=== PATIENT | male | born 1940 | race Caucasian/White ===

== ENCOUNTER 2020-08-07 23:58 | Observation (INO) ==
[2020-08-08 00:55] LABS: INR 0.9; PT Patient Result 10.2 SECS (9.8-11.9)
[2020-08-08 01:02] LABS: Basophils # 0.1 10*3/uL (0.0-0.2); Basophils % 0.6 % (0.0-0.8); Eosinophils # 0.4 10*3/uL (0.0-0.87); Eosinophils % 3.1 % (0.00-10.9); Hematocrit 28.8 VOL% (42.0-52.0); Hemoglobin 9.3 GM/DL (14.0-18.0); Immature Granulocytes % 3.2 %; Lymphocytes # 2.2 10*3/uL (1.4-4.0); Lymphocytes % 17.6 % (21.2-54.2); Mean Corpuscular HGB Conc 32.3 GM/DL (32-36); Mean Platelet Volume 10.8 FL (9.6-12.0); Monocytes % 8.1 % (1.7-12.7); NRBC # 0.02 10*3/uL; Neutrophils % 67.4 % (38.7-73.9); Platelet Count 224 T/CUMM (130-400); Red Blood Count 2.91 MC/CUMM (3.8-5.5); Red Cell Distribution Width 16.2 % (9.3-17.3); White Blood Count 12.4 T/CUMM (4-12)
[2020-08-08 01:09] LABS: Albumin 2.8 G/DL (3.4-5.0); Bilirubin,Total 0.4 MG/DL (0.2-1.0); Calcium 7.6 MG/DL (8.5-10.1); Osmolality,Calculated 283.3 MOS/KG (273-304); Total Protein 5.8 G/DL (6.4-8.3)
[2020-08-08] MEDS ORDERED: ALBUTEROL 2.5 MG/3 ML NEB RESP TX PRN (03:15)
[2020-08-08] MEDS ORDERED: ALBUTEROL/IPRATROPIUM 3 ML NEB RESP TX PRN (03:20)
[2020-08-08] MEDS ORDERED: MORPHINE 4 MG/1 ML VIAL IV PRN (03:20)
[2020-08-08] MEDS ORDERED: DOCUSATE SODIUM 100 MG CAPSULE PO PRN (03:20)
[2020-08-08] MEDS ORDERED: ONDANSETRON 4 MG/2 ML VIAL IV PRN (03:20)
[2020-08-08] MEDS ORDERED: ACETAMINOPHEN 325 MG TABLET PO PRN (03:20)
[2020-08-08] MEDS ORDERED: INFLUENZA VIRUS VACCINE 0.5 ML SYRINGE IM ONE (04:47)
[2020-08-08 05:30] LABS: Total Protein 5.7 G/DL (6.4-8.3)
[2020-08-08] MEDS: IPRATROPIUM 500 MCG/2.5 ML NEB RESP TX SCH ×4 (07:49→19:27)
[2020-08-08] MEDS: ENOXAPARIN 40 MG/0.4 ML SYRINGE SUBCUT SCH (08:17)
[2020-08-08] MEDS: DICLOFENAC 1% GEL 100 GM TUBE TOP SCH ×4 (08:17→20:42)
[2020-08-08] MEDS: FUROSEMIDE 20 MG TABLET PO SCH (08:17)
[2020-08-08] MEDS: PANTOPRAZOLE 40 MG TABLET PO SCH (08:17)
[2020-08-08] MEDS: carvediloL 3.125 MG TABLET PO SCH ×2 (08:17→20:42)
[2020-08-08] MEDS: FLUTICASONE/SALMETEROL 250-50 DISKUS 14 DOSE INH SCH ×2 (08:17→20:39)
[2020-08-08] MEDS: SACUBITRIL/VALSARTAN 49-51 MG TABLET PO SCH ×2 (08:17→20:42)
[2020-08-08] MEDS: ASPIRIN EC 325 MG TABLET PO SCH (08:17)
[2020-08-08] MEDS: FOLIC ACID 1 MG TABLET PO SCH (08:17)
[2020-08-08] MEDS: MONTELUKAST 10 MG TABLET PO SCH (08:17)
[2020-08-08 09:44] LABS: Bilirubin,Urine Negative (Negative); Blood, Urine Negative (Negative); Glucose,Urine (UA) Negative (Negative); Ketones,Urine Negative (Negative); Mucus,Urine Occasional /LPF (Occasional); Nitrite,Urine Negative (Negative); Protein,Urine 30 MG/DL; RBC,Urine <1 /HPF (0-4); Urine Appearance CLEAR (Clear); Urine Color Yellow (Yellow); Urine Specific Gravity 1.021 (1.001-1.035); Urine Urobilinogen < 2.0 EU/DL (0.2-1.0); WBC,Urine 1 /HPF (0-6)
[2020-08-08 10:17] LABS: Troponin I 0.089 NG/ML (0.00-0.045)
[2020-08-08] MEDS ORDERED: GABAPENTIN 300 MG CAPSULE PO SCH (21:00)
[2020-08-08] MEDS ORDERED: ATORVASTATIN 10 MG TABLET PO SCH (21:00)
[2020-08-09 06:02] LABS: Basophils # 0.2 10*3/uL (0.0-0.2); Basophils % 1.3 % (0.0-0.8); Eosinophils # 0.5 10*3/uL (0.0-0.87); Eosinophils % 3.1 % (0.00-10.9); Hematocrit 40.6 VOL% (42.0-52.0); Immature Granulocytes % 3.8 %; Immature Granulocytes Absolute 0.56 #; Lymphocytes % 20.1 % (21.2-54.2); Mean Corpuscular Volume 97.1 FL (87-102); Mean Platelet Volume 10.6 FL (9.6-12.0); Monocytes % 8.1 % (1.7-12.7); Neutrophils % 63.6 % (38.7-73.9); Red Cell Distribution Width 15.9 % (9.3-17.3); White Blood Count 14.7 T/CUMM (4-12)
[2020-08-09 06:05] LABS: Hemoglobin 13.4 GM/DL (14.0-18.0); Platelet Count 293 T/CUMM (130-400); Red Blood Count 4.18 MC/CUMM (3.8-5.5)
[2020-08-09 06:06] LABS: Albumin 3.2 G/DL (3.4-5.0); Bilirubin,Total 1.7 MG/DL (0.2-1.0); Calcium 9.5 MG/DL (8.5-10.1); Osmolality,Calculated 280.4 MOS/KG (273-304); Total Protein 6.5 G/DL (6.4-8.3)
[2020-08-09 06:18] LABS: Eosinophils 5 % (0-10); Hypochromasia 1+; Lymphocytes 20 % (20-55); Microcytosis 1+; Platelet Estimate Adequate; Segmented Neutrophils 66 % (50-85); Total Cells Counted 100
[2020-08-09] MEDS: IPRATROPIUM 500 MCG/2.5 ML NEB RESP TX SCH ×3 (07:32→14:10)
[2020-08-09] MEDS: ENOXAPARIN 40 MG/0.4 ML SYRINGE SUBCUT SCH (08:49)
[2020-08-09] MEDS: ASPIRIN EC 325 MG TABLET PO SCH (08:49)
[2020-08-09] MEDS: SACUBITRIL/VALSARTAN 49-51 MG TABLET PO SCH (08:50)
[2020-08-09] MEDS: PANTOPRAZOLE 40 MG TABLET PO SCH (08:50)
[2020-08-09] MEDS: MONTELUKAST 10 MG TABLET PO SCH (08:50)
[2020-08-09] MEDS: carvediloL 3.125 MG TABLET PO SCH (08:50)
[2020-08-09] MEDS: FUROSEMIDE 20 MG TABLET PO SCH (08:50)
[2020-08-09] MEDS: FOLIC ACID 1 MG TABLET PO SCH (08:50)
[2020-08-09] MEDS: DICLOFENAC 1% GEL 100 GM TUBE TOP SCH ×2 (09:00→14:09)
[2020-08-09] MEDS: FLUTICASONE/SALMETEROL 250-50 DISKUS 14 DOSE INH SCH (09:01)
[2020-08-09] MEDS ORDERED: DIAZEPAM 5 MG TABLET PO ONE (09:05)
[2020-08-09 10:36] LABS: Total Protein (Chem) 5.7 G/DL (6.4-8.3)
[2020-08-09 10:41] LABS: Albumin (SPE) 3.7 G/DL (3.2-5.3); Albumin (SPE) Rel % 64.4 %; Alpha 1 (SPE) 0.1 G/DL (0.1-0.4); Alpha 1 (SPE) Rel % 2.2 %; Alpha 2 (SPE) 0.8 G/DL (0.4-1.0); Alpha 2 (SPE) Rel % 13.7 %; Beta (SPE) 0.6 G/DL (0.5-1.1); Beta (SPE) Rel % 11.2 %; Gamma (SPE) 0.5 G/DL (0.7-1.7); Gamma (SPE) Rel % 8.5 %
[2020-08-09 11:45] VITALS: BP 111/63
[2020-08-09 11:57] LABS: Total Volume,Urine 2600 ML (400-2000)
[2020-08-09 12:11] LABS: Total Protein 24 Hr Ur Result 754 MG/24HR (0-149.1)
[2020-08-10 07:54] LABS: 24 Hr Protein (Bench) 754 MG/24HR (0-149.1)
[2020-08-10 09:29] LABS: Albumin (UPE) Rel % 13.4 %; Alpha 1 (UPE) 57.3 MG/24H; Alpha 1 (UPE) Rel % 7.6 %; Alpha 2 (UPE) 33.9 MG/24H; Alpha 2 (UPE) Rel % 4.5 %; Beta (UPE) Rel % 61.1 %; Gamma (UPE) Rel % 13.4 %
[2020-08-10 09:30] LABS: Beta (UPE) 460.6 MG/24H
[2020-08-10 13:16] LABS: Immunoglobulin A (Chem) 146 MG/DL (70-400); Immunoglobulin G (Chem) 595 MG/DL (700-1600); Immunoglobulin M (Chem) 32 MG/DL (40-230)
== END 2020-08-09 15:26 | disposition home or self-care (01) ==
LOC: EDBD → EDUNIT# → N.EDINP 23:58 → N.ED 23:58 → SUATTDRO 08-08 03:12 → N.EDINP 08-08 04:30 → N.5E 08-08 04:38
PROVIDERS: ADMIT Internal Medicine; ATTEND Internal Medicine Geriatric Medicine

== ENCOUNTER 2020-10-06 00:07 | Inpatient (IN) ==
[2020-10-06 01:08] LABS: Basophils # 0.1 10*3/uL (0.0-0.2); Basophils % 0.5 % (0.0-0.8); Eosinophils # 0.1 10*3/uL (0.0-0.87); Eosinophils % 0.3 % (0.00-10.9); Hematocrit 36.4 VOL% (42.0-52.0); Hemoglobin 11.2 GM/DL (14.0-18.0); Immature Granulocytes % 2.6 %; Immature Granulocytes Absolute 0.52 #; Lymphocytes # 0.9 10*3/uL (1.4-4.0); Lymphocytes % 4.6 % (21.2-54.2); Mean Corpuscular HGB Conc 30.8 GM/DL (32-36); Mean Corpuscular Volume 101.7 FL (87-102); Mean Platelet Volume 10.8 FL (9.6-12.0); Monocytes % 2.9 % (1.7-12.7); Neutrophils % 89.1 % (38.7-73.9); Platelet Count 226 T/CUMM (130-400); Red Blood Count 3.58 MC/CUMM (3.8-5.5); Red Cell Distribution Width 16.2 % (9.3-17.3); White Blood Count 19.8 T/CUMM (4-12)
[2020-10-06 01:13] LABS: Albumin 2.5 G/DL (3.4-5.0); Bilirubin,Total 1.5 MG/DL (0.2-1.0); Calcium 8.5 MG/DL (8.5-10.1); Osmolality,Calculated 275.7 MOS/KG (273-304); Total Protein 6.1 G/DL (6.4-8.3)
[2020-10-06 02:11] LABS: Bilirubin,Urine Negative (Negative); Blood, Urine Negative (Negative); Glucose,Urine (UA) Negative (Negative); Ketones,Urine Negative (Negative); Mucus,Urine Occasional /LPF (Occasional); Nitrite,Urine Negative (Negative); Protein,Urine 30 MG/DL; RBC,Urine 1 /HPF (0-4); Urine Appearance CLEAR (Clear); Urine Color Yellow (Yellow); Urine Specific Gravity 1.035 (1.001-1.035); WBC,Urine 1 /HPF (0-6)
[2020-10-06] MEDS ORDERED: PIPERACILLIN/TAZOBACTAM 3,375 MG in SODIUM CHLORIDE 0.9% 100 ML IV STA (02:15)
[2020-10-06] MEDS ORDERED: SODIUM CHLORIDE 0.9% 100 ML IV ONE (02:18)
[2020-10-06] MEDS ORDERED: PIPERACILLIN/TAZOBACTAM 3,375 MG VIAL IV ONE (02:18)
[2020-10-06] MEDS ORDERED: ONDANSETRON 4 MG/2 ML VIAL IV PRN (03:35)
[2020-10-06] MEDS ORDERED: ACETAMINOPHEN 325 MG TABLET PO PRN (03:35)
[2020-10-06 03:40] LABS: Anisocytosis 2+; Band Neutrophils 5 % (0-10); Hypochromasia Slight; Lymphocytes 6 % (20-55); Macrocytosis 2+; Metamyelocytes 3 %; Ovalocytes 1+; Platelet Estimate Normal; Segmented Neutrophils 82 % (50-85); Total Cells Counted 100
[2020-10-06] MEDS ORDERED: SODIUM CHLORIDE 0.9% 1,000 ML IV SCH (04:00)
[2020-10-06] MEDS ORDERED: CLINDAMYCIN INJ 900 MG in PREMIX 1 EACH IV ONE (07:00)
[2020-10-06 08:07] LABS: Basophils # 0.1 10*3/uL (0.0-0.2); Basophils % 0.3 % (0.0-0.8); Eosinophils % 0.2 % (0.00-10.9); Hemoglobin 10.7 GM/DL (14.0-18.0); Immature Granulocytes % 2.1 %; Immature Granulocytes Absolute 0.53 #; Lymphocytes # 1.4 10*3/uL (1.4-4.0); Lymphocytes % 5.6 % (21.2-54.2); Mean Corpuscular HGB Conc 33.4 GM/DL (32-36); Mean Corpuscular Volume 95.2 FL (87-102); Mean Platelet Volume 10.7 FL (9.6-12.0); Monocytes % 4.5 % (1.7-12.7); Neutrophils % 87.3 % (38.7-73.9); Platelet Count 255 T/CUMM (130-400); Red Blood Count 3.36 MC/CUMM (3.8-5.5); Red Cell Distribution Width 16.1 % (9.3-17.3); White Blood Count 24.9 T/CUMM (4-12)
[2020-10-06] MEDS: PANTOPRAZOLE 40 MG VIAL IV SCH (08:17)
[2020-10-06 08:34] LABS: Albumin 2.3 G/DL (3.4-5.0); Bilirubin,Total 2.3 MG/DL (0.2-1.0); Calcium 8.5 MG/DL (8.5-10.1); Osmolality,Calculated 277.4 MOS/KG (273-304); Total Protein 5.9 G/DL (6.4-8.3)
[2020-10-06 08:47] LABS: Atypical Lymphocytes Few; Band Neutrophils 2 % (0-10); Lymphocytes 10 % (20-55); Platelet Estimate Normal; Polychromasia Slight; Segmented Neutrophils 78 % (50-85); Total Cells Counted 100
[2020-10-06] MEDS ORDERED: ALBUTEROL 2.5 MG/3 ML NEB RESP TX PRN (09:23)
[2020-10-06] MEDS ORDERED: ETOMIDATE 40 MG/20 ML VIAL IV ONE (09:51)
[2020-10-06] MEDS ORDERED: ROCURONIUM 50 MG/5 ML VIAL IV ONE (09:51)
[2020-10-06] MEDS ORDERED: LIDOCAINE 2% 5 ML VIAL ONE (09:51)
[2020-10-06] MEDS ORDERED: ONDANSETRON 4 MG/2 ML VIAL ONE (09:51)
[2020-10-06] MEDS ORDERED: fentaNYL 100 MCG/2 ML VIAL ONE ×2 (09:51→12:06)
[2020-10-06] MEDS ORDERED: FUROSEMIDE 20 MG/2 ML VIAL IV ONE (10:00)
[2020-10-06] MEDS ORDERED: TISSUE ADHESIVE 1 EACH APPLICATOR TOP ONE (11:22)
[2020-10-06 12:26] LABS: Amorphous Crystals,Urine Few /HPF (Few); Bacteria,Urine Occasional /HPF (Few); Bilirubin,Urine Negative (Negative); Blood, Urine Negative (Negative); Glucose,Urine (UA) Negative (Negative); Ketones,Urine Negative (Negative); Nitrite,Urine Negative (Negative); Protein,Urine Negative; RBC,Urine 2 /HPF (0-4); Urine Appearance CLEAR (Clear); Urine Color Straw (Yellow); Urine Specific Gravity 1.015 (1.001-1.035); Urine Urobilinogen < 2.0 EU/DL (0.2-1.0); WBC,Urine 3 /HPF (0-6)
[2020-10-06] MEDS: PIPERACILLIN/TAZOBACTAM 3,375 MG in SODIUM CHLORIDE 0.9% 100 ML IV SCH ×2 (15:29→18:15)
[2020-10-06] MEDS: GABAPENTIN 300 MG CAPSULE PO SCH (22:04)
[2020-10-06] MEDS: carvediloL 3.125 MG TABLET PO SCH (22:04)
[2020-10-06] MEDS: ATORVASTATIN 10 MG TABLET PO SCH (22:05)
[2020-10-06] MEDS: SACUBITRIL/VALSARTAN 49-51 MG TABLET PO SCH (22:08)
[2020-10-06] MEDS: ACYCLOVIR 200 MG CAPSULE PO SCH (22:08)
[2020-10-07] MEDS: PIPERACILLIN/TAZOBACTAM 3,375 MG in SODIUM CHLORIDE 0.9% 100 ML IV SCH ×3 (03:57→17:44)
[2020-10-07 05:49] LABS: Basophils % 0.2 % (0.0-0.8); Eosinophils # 0.3 10*3/uL (0.0-0.87); Eosinophils % 1.9 % (0.00-10.9); Hematocrit 31.3 VOL% (42.0-52.0); Hemoglobin 10.4 GM/DL (14.0-18.0); Immature Granulocytes % 2.9 %; Mean Corpuscular HGB Conc 33.2 GM/DL (32-36); Mean Corpuscular Volume 96.6 FL (87-102); Mean Platelet Volume 10.2 FL (9.6-12.0); Monocytes % 6.6 % (1.7-12.7); Neutrophils % 82.4 % (38.7-73.9); Platelet Count 283 T/CUMM (130-400); Red Blood Count 3.24 MC/CUMM (3.8-5.5); Red Cell Distribution Width 16.4 % (9.3-17.3)
[2020-10-07 06:24] LABS: Bilirubin,Total 1.5 MG/DL (0.2-1.0); Calcium 8.2 MG/DL (8.5-10.1); Osmolality,Calculated 277.5 MOS/KG (273-304); Total Protein 5.6 G/DL (6.4-8.3)
[2020-10-07] MEDS ORDERED: FUROSEMIDE 20 MG TABLET PO SCH (09:00)
[2020-10-07] MEDS ORDERED: DEXAMETHASONE 4 MG TABLET PO SCH (09:00)
[2020-10-07] MEDS: ACYCLOVIR 200 MG CAPSULE PO SCH ×2 (09:13→21:38)
[2020-10-07] MEDS: SACUBITRIL/VALSARTAN 49-51 MG TABLET PO SCH ×2 (09:13→22:18)
[2020-10-07] MEDS: MONTELUKAST 10 MG TABLET PO SCH (09:13)
[2020-10-07] MEDS: FOLIC ACID 1 MG TABLET PO SCH (09:14)
[2020-10-07] MEDS: carvediloL 3.125 MG TABLET PO SCH ×2 (09:14→21:36)
[2020-10-07] MEDS: SPIRONOLACTONE 25 MG TABLET PO SCH (09:14)
[2020-10-07] MEDS: PANTOPRAZOLE 40 MG TABLET PO SCH (09:15)
[2020-10-07] MEDS: IPRATROPIUM 500 MCG/2.5 ML NEB RESP TX SCH ×3 (11:05→19:29)
[2020-10-07] MEDS: PANTOPRAZOLE 40 MG VIAL IV SCH (13:23)
[2020-10-07] MEDS: ATORVASTATIN 10 MG TABLET PO SCH (21:36)
[2020-10-07] MEDS: GABAPENTIN 300 MG CAPSULE PO SCH (21:37)
[2020-10-08] MEDS: PIPERACILLIN/TAZOBACTAM 3,375 MG in SODIUM CHLORIDE 0.9% 100 ML IV SCH (02:25)
[2020-10-08 05:43] LABS: Basophils # 0.1 10*3/uL (0.0-0.2); Basophils % 0.4 % (0.0-0.8); Eosinophils # 0.3 10*3/uL (0.0-0.87); Eosinophils % 2.5 % (0.00-10.9); Hemoglobin 10.5 GM/DL (14.0-18.0); Immature Granulocytes % 2.4 %; Lymphocytes # 1.2 10*3/uL (1.4-4.0); Lymphocytes % 9.6 % (21.2-54.2); Mean Corpuscular HGB Conc 32.8 GM/DL (32-36); Mean Corpuscular Volume 96.1 FL (87-102); Mean Platelet Volume 10.6 FL (9.6-12.0); Monocytes % 6.7 % (1.7-12.7); Neutrophils % 78.4 % (38.7-73.9); Platelet Count 265 T/CUMM (130-400); Red Blood Count 3.33 MC/CUMM (3.8-5.5); Red Cell Distribution Width 16.2 % (9.3-17.3); White Blood Count 12.5 T/CUMM (4-12)
[2020-10-08 06:41] LABS: Albumin 1.9 G/DL (3.4-5.0); Calcium 8.2 MG/DL (8.5-10.1); Osmolality,Calculated 279.4 MOS/KG (273-304); Total Protein 5.7 G/DL (6.4-8.3)
[2020-10-08 06:50] LABS: Elliptocytes Few; Ovalocytes Few; Platelet Estimate Normal; Polychromasia Slight; Schistocytes 1+
[2020-10-08] MEDS: IPRATROPIUM 500 MCG/2.5 ML NEB RESP TX SCH ×4 (07:20→20:21)
[2020-10-08] MEDS: ACYCLOVIR 200 MG CAPSULE PO SCH ×2 (09:15→21:06)
[2020-10-08] MEDS: SACUBITRIL/VALSARTAN 49-51 MG TABLET PO SCH ×2 (09:16→21:06)
[2020-10-08] MEDS: MONTELUKAST 10 MG TABLET PO SCH (09:17)
[2020-10-08] MEDS: FOLIC ACID 1 MG TABLET PO SCH (09:18)
[2020-10-08] MEDS: carvediloL 3.125 MG TABLET PO SCH ×2 (09:20→21:07)
[2020-10-08] MEDS: PANTOPRAZOLE 40 MG TABLET PO SCH (09:23)
[2020-10-08] MEDS ORDERED: DOCUSATE SODIUM 100 MG CAPSULE PO PRN (11:12)
[2020-10-08] MEDS ORDERED: SENNA 8.6 MG TABLET PO PRN (11:12)
[2020-10-08] MEDS: PANTOPRAZOLE 40 MG VIAL IV SCH (11:53)
[2020-10-08] MEDS: SPIRONOLACTONE 25 MG TABLET PO SCH (11:53)
[2020-10-08] MEDS: GABAPENTIN 300 MG CAPSULE PO SCH (21:06)
[2020-10-08] MEDS: ATORVASTATIN 10 MG TABLET PO SCH (21:07)
[2020-10-09] MEDS: IPRATROPIUM 500 MCG/2.5 ML NEB RESP TX SCH ×2 (07:19→10:59)
[2020-10-09 08:10] VITALS: BP 119/57
[2020-10-09] MEDS: FOLIC ACID 1 MG TABLET PO SCH (09:53)
[2020-10-09] MEDS: MONTELUKAST 10 MG TABLET PO SCH (09:53)
[2020-10-09] MEDS: SACUBITRIL/VALSARTAN 49-51 MG TABLET PO SCH (09:53)
[2020-10-09] MEDS: ACYCLOVIR 200 MG CAPSULE PO SCH (09:53)
[2020-10-09] MEDS: carvediloL 3.125 MG TABLET PO SCH (09:54)
[2020-10-09] MEDS: SPIRONOLACTONE 25 MG TABLET PO SCH (09:54)
[2020-10-09] MEDS: PANTOPRAZOLE 40 MG TABLET PO SCH (09:54)
[2020-10-09] MEDS: PANTOPRAZOLE 40 MG VIAL IV SCH (11:29)
[2020-10-30] MEDS ORDERED: CYANOCOBALAMIN 1000 MCG/1 ML VIAL IM SCH (09:00)
== END 2020-10-09 11:20 | disposition home or self-care (01) | DRG 853 ==
LOC: EDBD → EDUNIT# → N.ED 00:07 → N.EDINP 04:41 → N.3E 05:17
PROVIDERS: ADMIT Student in an Organized Health Care Education/Training Program; ATTEND Student in an Organized Health Care Education/Training Program
PROC: LAPCHOL (2020-10-06 10:13)